=== PATIENT | female | born 1975 | race Caucasian/White ===

== ENCOUNTER 2023-09-30 21:28 | Emergency (ER) | payer SELFPAY ==
[~2023-09-30] VITALS: Ht 157.5 cm; Wt 61.0 kg
[2023-09-30 21:41] VITALS: TEMP 98.2; O2SAT 99
[2023-10-01 00:13] VITALS: BP 180/99; PULSE 91; RESP 18
[2023-10-01] MEDS: ACETAMINOPHEN WITH CODEINE 300/30MG TABLET PO ONE (00:13)
[2023-10-01] MEDS ORDERED: IBUP-2029 MT (00:39)
[2023-10-01] MEDS ORDERED: CYCL5TAB MT (00:39)
== END 2023-10-01 01:01 | disposition home or self-care (01) ==
LOC: ER 21:28
DX: S09.90XA Unspecified injury of head, initial encounter (principal); M54.2 Cervicalgia; V49.49XA Driver injured in collision with other motor vehicles in traffic accident, initial encounter; Y93.89 Activity, other specified; Y92.89 Other specified places as the place of occurrence of the external cause; Y99.8 Other external cause status
CPT/HCPCS: 99284